=== PATIENT | female | born 1980 | race Two or more races ===

== ENCOUNTER 2017-04-10 07:42 | Day surgery (SDC) | payer OTHER ==
[~2017-04-10 07:42] MED LIST: Ondansetron 4 MG/2 ML SDV IVPUSH PRN
[2017-04-10] MEDS ORDERED: Lactated Ringers 1,000 ML IV SCH (07:45)
--- NOTE | 2017-04-10 08:53 | PCM.HPR ---
H & P Addendum review - H & P Addendum Review Date of Original H & P: 04/06/17 Date Reviewed: 04/10/17 Time Reviewed: 08:53 Patient was examined: No Changes
[2017-04-10] MEDS ORDERED: Propofol 200 MG/20 ML SDV IV ONE (09:00)
[2017-04-10] MEDS ORDERED: fentaNYL 100 MCG/2 ML SDV IV ONE (09:00)
[2017-04-10] MEDS ORDERED: HYDROmorphone 2 MG/ML SDV IV ONE (09:00)
[2017-04-10] MEDS ORDERED: Ondansetron 4 MG/2 ML SDV IVPUSH ONE (09:00)
[2017-04-10] MEDS ORDERED: Midazolam 1 MG/ML 2 ML SDV IV ONE (09:00)
[2017-04-10] MEDS ORDERED: Lactated Ringers 1,000 ML IV ONE (09:00)
[2017-04-10] MEDS ORDERED: Dexamethasone 4 MG/ML 5 ML MDV IVPUSH ONE (09:00)
--- NOTE | 2017-04-10 10:14 | PCM.OPNOTE ---
- General Post-Op/Procedure Note Date of Surgery/Procedure: 04/10/17 Operative Procedure(s): Excisional L Breast Bx and Cx Findings: 3 cm inflammatory mass Pre Op Diagnosis: L Breast Mass with recurrent mastitis Post-Op Diagnosis: Same Anesthesia Technique: General ET tube Primary Surgeon: Ace Naranjo Anesthesia Provider: Fritz Gutierres Pathology: L breast mass EBL in mLs: 10 Complications: None Condition: Good Free Text/Narrative:: Intake & Output 04/09/17 04/10/17 04/10/17 22:59 06:59 14:59 Output Total 100 Balance -100
[2017-04-10] MEDS ORDERED: Morphine 2 MG/ML Syringe IVPUSH PRN (10:26)
[2017-04-10] MEDS ORDERED: Ketorolac 30 MG/ML SDV IVPUSH ONE (10:32)
[2017-04-10] MEDS: HYDROmorphone 2 MG/ML SDV IVPUSH PRN ×2 (11:14→11:49)
[2017-04-10] MEDS ORDERED: Promethazine 25 MG/ML SDV IM ONE (14:18)
[2017-04-10] MEDS ORDERED: Scopolamine 1.5 MG Transdermal Patch TRDERM PRN (14:20)
--- NOTE | 2017-04-10 14:24 | OR ---
DATE OF OPERATION: 04/10/2017 SURGEON: Ace Naranjo MD PREOPERATIVE DIAGNOSIS: Recurrent left mastitis with breast lump. POSTOPERATIVE DIAGNOSIS: Recurrent left mastitis with breast lump. PROCEDURE: Excisional biopsy, left breast mass. ANESTHESIA: General. NARRATIVE: The patient was brought to the operating room, where her left breast was prepped with ChloraPrep and draped sterilely. Surgical site had been marked by myself preoperatively. The patient did have some spontaneous drainage again this weekend with slight reduction in the mass, but there was only a small amount of serous drainage today. An excisional skin incision was made removing the skin opening and skin flaps were raised circumferentially and blunt dissection and electrocautery were used to remove the inflammatory mass that measured almost 3 cm in diameter in all directions. As I got towards the bottom of it toward the chest wall, it seems that I did enter a possible abscess cavity with some cloudy fluid. This was cultured and sent for aerobic and anaerobic cultures. Because of the persistence of this mass for the last couple months, I did remove the inflammatory mass almost down to the chest wall. This was then removed and orientated for the pathologist. Fortunately, this does not appear to leave much of a cosmetic defect. A moist gauze was packed and skin left open. A sterile dressing was applied. The patient tolerated procedure well. Estimated blood loss was 10 mL. She was returned to postanesthesia in stable condition. /[id number] [place]/ALVARO
[2017-04-10 15:33] VITALS: BP 107/54
== END 2017-04-10 15:25 | disposition home or self-care (01) ==
LOC: FB.SDS 07:42
PROVIDERS: ATTEND Surgery
DX: N60.12 Diffuse cystic mastopathy of left breast (principal); Z88.8 Allergy status to other drugs, medicaments and biological substances; Z98.890 Other specified postprocedural states
CPT/HCPCS: 19120; 81025; 87070; 87075; 87205; 88305; 88312; A9270; J1100; J1170; J1885; J2250; J2270; J2405; J2550; J2704; J3010; J7120